=== PATIENT | male | born 1960 | race Caucasian/White ===

== ENCOUNTER 2019-05-01 17:15 | Inpatient (IN) | payer MEDICARE, OTHER ==
[~2019-05-01] VITALS: Ht 170.2 cm; Wt 53.8 kg
--- NOTE | 2019-05-01 17:45 | PHYS DOC ---
Past History Past Medical History: Schizophrenia, Other Additional Past Medical Histor: movement disorder of the hands (SYLVIE YOUNG DO) Past Surgical History: No Surgical History (SYLVIE YOUNG DO) Smoking: Non-smoker Alcohol Use: None Drug Use: Marijuana (SYLVIE YOUNG DO) Adult General Chief Complaint Chief Complaint: SKIN PROBLEM HPI HPI Patient is a 58-year-old male presents with left elbow region skin redness, pain, and swelling. 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 There has been increasing pain swelling and redness since that time. He has not placed anything on the wound, nor taken any medicines for pain. Increased pain with touch. No fever. No numbness or tingling in the fingers. Nothing makes the symptoms better. Discomfort is moderate in intensity.[] (SYLVIE YOUNG DO) Review of Systems Review of Systems Constitutional: Denies fever or chills [] Eyes: Denies change in visual acuity, redness, or eye pain [] HENT: Denies nasal congestion or sore throat [] Respiratory: Denies cough or shortness of breath [] Cardiovascular: No chest pain or palpitations[] GI: Denies abdominal pain, nausea, vomiting, bloody stools or diarrhea [] : Denies dysuria or hematuria [] Musculoskeletal: Denies back pain, see history of present illness[] Integument: See history of present illness[] Neurologic: Denies headache, focal weakness or sensory changes [] Endocrine: Denies polyuria or polydipsia [] All other systems were reviewed and found to be within normal limits, except as documented in this note. (SYLVIE YOUNG DO) Allergies Allergies Allergies Coded Allergies Type Severity Reaction Last Updated Verified No Known Drug Allergies 05/01/19 No (SYLVIE YOUNG DO) Physical Exam Physical Exam Constitutional: Well developed, well nourished, no acute distress, non-toxic appearance. [] HENT: Normocephalic, atraumatic, bilateral external ears normal, oropharynx moist, no oral exudates, nose normal. [] Eyes: PERRLA, EOMI, conjunctiva normal, no discharge. [] Neck: Normal range of motion, no tenderness, supple, no stridor. [] Cardiovascular:Heart rate regular rhythm, no murmur [] Lungs & Thorax: Bilateral breath sounds clear to auscultation [] Abdomen: Bowel sounds normal, soft, no tenderness, no masses, no pulsatile masses. [] Skin: Warm, dry, there is erythema and swelling on the antecubital region of his left elbow. Swelling over the insertion of the biceps. Decreased extension of the elbow. There is no axillary lymphadenopathy present. Full range of motion at the shoulder and the wrist.. [] Back: No tenderness, no CVA tenderness. [] Extremities: No tenderness, no cyanosis, no clubbing, ROM intact, no edema. [] Neurologic: Alert and oriented X 3, normal motor function, normal sensory function, no focal deficits noted. [] Psychologic: Affect normal, judgement normal, mood normal. [] (SYLVIE YOUNG DO) Current Patient Data Vital Signs Vital Signs Date Time Temp Pulse Resp B/P (MAP) Pulse Ox O2 Delivery O2 Flow Rate FiO2 05/01/19 17:28 98.2 68 16 94 Room Air (SYLVIE YOUNG DO) EKG EKG [] (SYLVIE YOUNG DO) Radiology/Procedures Radiology/Procedures [] (SYLVIE YOUNG DO) Radiology/[place] [address] IMAGING REPORT Signed PATIENT: BRENT KIMBROUGH CACCOUNT: [id number] : 1960 LOCATION: ER AGE: 58 SEX: M EXAM STATUS: REG ER ORD. PHYSICIAN: SYLVIE YOUNG DO REASON: Redness, swelling, bump along the medial aspect of the elbow PROCEDURE: ELBOW LEFT 3V 3 view left elbow HISTORY: Swelling AP lateral oblique views The visualized osseous structures appear normal. There is some air which projects posteriorly and medially to the elbow. There is no displacement of the fat pad. IMPRESSION: 1. No bony normality identified. 2. Possible air within the soft tissues which can be secondary to infection with a gas forming organism. Clinical correlation is suggested. Electronically signed by: Yarelis Ceja III, MD (05/01/2019 5:55 PM) [id number] DICTATED AND SIGNED BY: YARELIS CEJA III, MD DATE: 05/01/19 4298 CC: SYLVIE YOUNG DO; PCP,NO ~ [place] [address] IMAGING REPORT Signed PATIENT: BRENT KIMBROUGH CACCOUNT: [id number] : 1960 LOCATION: ER AGE: 58 SEX: M EXAM STATUS: REG ER ORD. PHYSICIAN: SYLVIE YOUNG DO REASON: redness and swelling medial aspect left elbow PROCEDURE: EXT NON VASC LEFT Exam: Ultrasound extremity, nonvascular left Indication: Redness, swelling medial aspect of the left elbow Technique: Real-time grayscale and color Doppler images of the left elbow were obtained by the department correctional program officer. Comparisons: Radiographs FINDINGS: In the left medial antecubital space at the area of concern there is a 2.9 x 2.4 x 1.8 cm echogenic area with dirty shadowing favored represent air. Edema is noted within the adjacent soft tissues. Extensive hyperemia is also noted surrounding this area. A nonpathologic appearing lymph node is also seen within the soft tissues. IMPRESSION: 2.9 x 2.4 x 1.8 cm echogenic area in the left medial antecubital fossa with associated soft tissue gas and adjacent reactive edema and hyperemia. Findings are nonspecific however the primary consideration is infection/abscess with air Electronically signed by: Brando Correia MD (05/01/2019 6:33 PM) [facility] DICTATED AND SIGNED BY: BRANDO CORREIA MD DATE: 05/01/19 1415 CC: SYLVIE YOUNG DO; HANNA BENSON MD; PCP,NO ~ (HANNA BENSON MD) Course & Med Decision Making Course & Med Decision Making Pertinent Labs and Imaging studies reviewed. (See chart for details) ED course: Patient arrived, was placed in bed, and tolerated exam well. IV access was established, laboratory samples were obtained. Patient care was endorsed to the nighttime physician at 1800 with laboratory and imaging findings pending.[] (SYLVIE YOUNG DO) Course & Med Decision Making Impression = 1. Cellulitis/Abscess 2. Lymphadenopathy 3. Possible abscess / gas pocket-Atypical Infection 4. Elevated CRP 110.9 5. Hx. schizophrenia 6. 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 No hx of immunosuppression. Patient is up-to-date with tetanus. Patient normally follows at [facility] Patient admitted to Dr. Grady for further evaluation and treatment. Procedure note- aspiration for culture- left elbow prepped with Betadine- aspirated a small amount of fluid from left elbow and gas. Sterile technique. 18-gauge needle. Sent for culture. (HANNA BENSON MD) Dragon Disclaimer Dragon Disclaimer This electronic medical record was generated, in whole or in part, using a voice recognition dictation system. (SYLVIE YOUNG DO) Departure Departure: Disposition: 01 HOME/RESIDENCE PRIOR TO ADM Condition: STABLE Referrals: PCP,NO (PCP) [employer] Disclaimer This chart was dictated in whole or in part using Voice Recognition software in a busy, high-work load, and often noisy Emergency Department environment. It may contain unintended and wholly unrecognized errors or omissions. (HANNA BENSON MD) SYLVIE YOUNG DO May 01, 2019 17:45 HANNA BENSON MD May 01, 2019 18:38
--- NOTE | 2019-05-01 17:58 | RAD ---
3 view left elbow HISTORY: Swelling AP lateral oblique views The visualized osseous structures appear normal. There is some air which projects posteriorly and medially to the elbow. There is no displacement of the fat pad. IMPRESSION: 1. No bony normality identified. 2. Possible air within the soft tissues which can be secondary to infection with a gas forming organism. Clinical correlation is suggested. Electronically signed by: Bassam Flower III, MD (05/01/2019 5:55 PM) [facility]
[2019-05-01 18:05] LABS: BASO # 0.1 x10^3/uL (0.0-0.2); BASO % 1 % (0-3); EOS % 0 % (0-3); HEMATOCRIT 39.7 % (39.0-53.0); HEMOGLOBIN 13.3 g/dL (13.0-17.5); LYMPH # 1.4 x10^3/uL (1.0-4.8); LYMPH % 14 % (24-48); MEAN CORPUSCULAR HEMOGLOBIN 32 pg (25-35); MEAN CORPUSCULAR HGB CONC 33 g/dL (31-37); MEAN CORPUSCULAR VOLUME 96 fL (79-100); MONO # 0.9 x10^3/uL (0.0-1.1); MONO % 9 % (0-9); NEUT # 7.6 x10^3uL (1.8-7.7); NEUT % 77 % (31-73); PLATELET COUNT 332 x10^3/uL (140-400); RED BLOOD COUNT 4.15 x10^6/uL (4.30-5.70); RED CELL DISTRIBUTION WIDTH 13.4 % (11.5-14.5)
[2019-05-01 18:10] LABS: ALBUMIN 3.1 g/dL (3.4-5.0); ALBUMIN/GLOBULIN RATIO 0.8 (1.0-1.7); C REACTIVE PROTEIN 110.9 mg/L (0-3.3); GFR 76.5; POTASSIUM 3.6 mmol/L (3.5-5.1); TOTAL BILIRUBIN 1.4 mg/dL (0.2-1.0)
[2019-05-01] MEDS ORDERED: SMZ/TMP 800/160MG TABLET. PO ONE (18:30)
[2019-05-01] MEDS ORDERED: IV NORMAL SALINE 50ML 50 ML ONE (18:35)
[2019-05-01] MEDS ORDERED: cefTRIAXone SODIUM 1 GM VIAL ONE (18:35)
--- NOTE | 2019-05-01 18:36 | RAD ---
Exam: Ultrasound extremity, nonvascular left Indication: Redness, swelling medial aspect of the left elbow Technique: Real-time grayscale and color Doppler images of the left elbow were obtained by the department safe deposit box rental clerk. Comparisons: Radiographs FINDINGS: In the left medial antecubital space at the area of concern there is a 2.9 x 2.4 x 1.8 cm echogenic area with dirty shadowing favored represent air. Edema is noted within the adjacent soft tissues. Extensive hyperemia is also noted surrounding this area. A nonpathologic appearing lymph node is also seen within the soft tissues. IMPRESSION: 2.9 x 2.4 x 1.8 cm echogenic area in the left medial antecubital fossa with associated soft tissue gas and adjacent reactive edema and hyperemia. Findings are nonspecific however the primary consideration is infection/abscess with air Electronically signed by: Brando Johnson MD (05/01/2019 6:33 PM) [facility]
[2019-05-01 19:09] LABS: SEDIMENTATION RATE 45 (0-15)
[2019-05-01] MEDS ORDERED: ONDANSETRON PF 4 MG/2 ML VIAL. IV PRN (19:15)
[2019-05-01] MEDS ORDERED: ACETAMINOPHEN 325 MG TABLET PO PRN (19:15)
[2019-05-01 21:22] VITALS: BP 123/78
[2019-05-01] MEDS: IV RINGERS SOLUTION,LACTATED 1,000 ML IV SCH (22:24)
[2019-05-02] MEDS: IV RINGERS SOLUTION,LACTATED 1,000 ML IV SCH ×4 (04:37→20:01)
[2019-05-02 05:49] LABS: BASO # 0.1 x10^3/uL (0.0-0.2); BASO % 1 % (0-3); EOS # 0.1 x10^3/uL (0.0-0.7); EOS % 2 % (0-3); HEMATOCRIT 36.8 % (39.0-53.0); HEMOGLOBIN 12.6 g/dL (13.0-17.5); LYMPH # 1.4 x10^3/uL (1.0-4.8); LYMPH % 19 % (24-48); MEAN CORPUSCULAR HEMOGLOBIN 32 pg (25-35); MEAN CORPUSCULAR HGB CONC 34 g/dL (31-37); MEAN CORPUSCULAR VOLUME 94 fL (79-100); MONO # 0.6 x10^3/uL (0.0-1.1); MONO % 8 % (0-9); NEUT # 5.1 x10^3uL (1.8-7.7); NEUT % 71 % (31-73); PLATELET COUNT 283 x10^3/uL (140-400); RED CELL DISTRIBUTION WIDTH 13.4 % (11.5-14.5); WHITE BLOOD COUNT 7.2 x10^3/uL (4.0-11.0)
[2019-05-02 05:59] LABS: CALCIUM 8.5 mg/dL (8.5-10.1); CREATININE 0.9 mg/dL (0.7-1.3); GFR 86.4; POTASSIUM 3.5 mmol/L (3.5-5.1)
[2019-05-02 06:13] VITALS: BP 126/81
[2019-05-02] MEDS: LACTOBACILLUS RHAMNOSUS GG 1 CAPSULE. PO SCH ×2 (09:00→20:00)
[2019-05-02 11:18] VITALS: BP 121/72
[2019-05-02] MEDS ORDERED: PIP/TAZO PER PHARMACY MC PRN (13:00)
[2019-05-02] MEDS: PIPERACILLIN/TAZOBACTAM 3.375 GM in IV NORMAL SALINE 50ML 50 ML IV SCH ×3 (14:05→23:29)
[2019-05-02] MEDS: VANCOMYCIN PER PHARMACY MC PRN (14:55)
[2019-05-02] MEDS ORDERED: VANCOMYCIN 1.5 GM in IV NORMAL SALINE 500ML 500 ML IV ONE ×4 (15:00)
[2019-05-02] MEDS: VANCOMYCIN 1 GM in IV NORMAL SALINE 250ML 250 ML IV SCH (15:27)
[2019-05-02 15:30] VITALS: BP 112/73
[2019-05-02 19:33] VITALS: BP 128/82
--- NOTE | 2019-05-02 21:04 | HP ---
ADMIT DATE: 05/01/2019 HISTORY OF PRESENT ILLNESS: A 58-year-old male came in with marked swelling to his left elbow area. 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 He got poked with something while working on a pine tree couple of days prior to admission and the patient had increased pain, swelling and redness to that area. There was a large, approximately 5 cm x 4 cm raised area on the ventral surface of the antecubital area as well as swelling and redness around the left elbow joint itself. As a result of this, the patient had failed outpatient therapy and was continued on IV antibiotic therapy. He did have an elevated sedimentation rate. PAST MEDICAL HISTORY: Positive for psychiatric problems, schizophrenia. ALLERGIES: No known drug allergies. MEDICATIONS: The patient is basically on medications here at the hospital including piperacillin and vancomycin. SOCIAL HISTORY: The patient has about 40-50 pack year history of smoking. Occasional alcohol use and the patient also is a full code. FAMILY HISTORY: Unremarkable. REVIEW OF SYSTEMS: The patient notes some chilling, but other than that denies chest pain, shortness of breath, abdominal pain. Denies any melena, hematochezia, hematemesis or diaphoresis. PHYSICAL EXAMINATION: GENERAL: This is a pleasant white male. VITAL SIGNS: Blood pressure 128/82, respiratory rate 20, pulse 84, afebrile. HEENT: The patient's head was atraumatic, normocephalic. Eyes: PERRLA without jaundice. Mouth and throat: Normal. NECK: Supple. LUNGS: Diminished, but basically clear. CARDIOVASCULAR: Stable. Left elbow swollen, tender, especially in the antecubital area that is swollen mass. EXTREMITIES: No clubbing, cyanosis, nor edema. NEUROLOGIC: The patient was alert and oriented, baseline for him. LABORATORY DATA: White count was 10. Sed rate was 45. The patient continues to be monitored carefully. C-reactive protein approximately 111. The patient will continue to be monitored carefully and make further evaluation on him as indicated. IMPRESSION: Cellulitis, possible abscess to the left elbow area. PLAN: Continue on IV antibiotic therapy and make further evaluation on him as indicated. TANISHA BRITO MD DR: DEONTE/miguel JOB#: [id number] / [id number]
[2019-05-03] MEDS: PIPERACILLIN/TAZOBACTAM 3.375 GM in IV NORMAL SALINE 50ML 50 ML IV SCH ×3 (05:44→17:27)
[2019-05-03] MEDS: IV RINGERS SOLUTION,LACTATED 1,000 ML IV SCH ×3 (05:44→14:44)
[2019-05-03 06:02] VITALS: BP 115/74
[2019-05-03] MEDS: LACTOBACILLUS RHAMNOSUS GG 1 CAPSULE. PO SCH ×2 (08:00→22:17)
[2019-05-03] MEDS ORDERED: BENZTROPINE MESYLATE 1 MG TABLET PO PRN (11:15)
[2019-05-03] MEDS ORDERED: TAMS0.4C97 PO (11:25)
[2019-05-03] MEDS ORDERED: RISP3TAB3 PO (11:25)
[2019-05-03] MEDS ORDERED: CLON0.1T PO (11:25)
[2019-05-03] MEDS ORDERED: HYDR25TA PO ×2 (11:25→11:27)
[2019-05-03] MEDS ORDERED: TRAZ-120 PO (11:25)
[2019-05-03] MEDS ORDERED: BENZ1TAB5 PO (11:25)
[2019-05-03 11:27] VITALS: BP 100/79
[2019-05-03] MEDS: VANCOMYCIN 1 GM in IV NORMAL SALINE 250ML 250 ML IV SCH (14:46)
[2019-05-03] MEDS ORDERED: hydrOXYzine HCL 25 MG TABLET PO PRN (15:00)
[2019-05-03 16:12] VITALS: BP 119/62
[2019-05-03 19:12] VITALS: BP 103/67
[2019-05-03] MEDS: traZODone 50 MG TABLET. PO PRN (22:17)
[2019-05-03] MEDS: risperiDONE 0.5 MG TABLET. PO SCH (22:17)
[2019-05-03] MEDS: TAMSULOSIN 0.4 MG CAP.ER.24H. PO SCH (22:18)
[2019-05-03] MEDS: cloNIDine HCL 0.1 MG TABLET PO SCH (22:18)
[2019-05-03 23:33] VITALS: BP 127/75
[2019-05-04 03:30] LABS: VANC TR 7.2 mcg/mL (10.0-20.0)
[2019-05-04] MEDS: VANCOMYCIN 1 GM in IV NORMAL SALINE 250ML 250 ML IV SCH ×3 (03:30→18:15)
[2019-05-04] MEDS: IV RINGERS SOLUTION,LACTATED 1,000 ML IV SCH ×5 (03:30→22:12)
--- NOTE | 2019-05-04 04:55 | PN ---
DATE: SUBJECTIVE: This is a 58-year-old male from the [place]. The patient has severe infection in his left antecubital, left elbow area. The patient has made good progress with IV antibiotic therapy. PICC line was placed. [facility] this gentleman, as he has made excellent progress. PHYSICAL EXAMINATION: VITAL SIGNS: Blood pressure 103/67, respiratory rate 18, pulse 86, afebrile. GENERAL: The patient is alert and oriented. The patient's swelling to the left elbow area has diminished somewhat. He is markedly improved. PLAN: We will continue to monitor the patient, accordingly make further evaluation. Continue on IV antibiotic therapy. IMPRESSION: Cellulitis, abscess to the left antecubital area, anemia of chronic disease, history of schizophrenia. C-reactive protein 111. TANISHA BRITO MD DR: DEONTE/miguel JOB#: [id number] / [id number]
[2019-05-04] MEDS: PIPERACILLIN/TAZOBACTAM 3.375 GM in IV NORMAL SALINE 50ML 50 ML IV SCH ×5 (05:56→17:36)
[2019-05-04 06:48] VITALS: BP 108/70
[2019-05-04] MEDS: LACTOBACILLUS RHAMNOSUS GG 1 CAPSULE. PO SCH ×2 (09:08→20:54)
[2019-05-04] MEDS: cloNIDine HCL 0.1 MG TABLET PO SCH ×2 (09:08→20:54)
[2019-05-04] MEDS ORDERED: VANCOMYCIN 1 GM in IV NORMAL SALINE 250ML 250 ML IV SCH (10:15)
[2019-05-04] MEDS: VANCOMYCIN PER PHARMACY MC PRN (10:21)
[2019-05-04 11:09] VITALS: BP 109/65
[2019-05-04 15:00] VITALS: BP 106/62
[2019-05-04 19:12] VITALS: BP 110/68
[2019-05-04] MEDS: traZODone 50 MG TABLET. PO PRN (20:54)
[2019-05-04] MEDS: TAMSULOSIN 0.4 MG CAP.ER.24H. PO SCH (20:54)
[2019-05-04] MEDS: risperiDONE 0.5 MG TABLET. PO SCH (20:54)
[2019-05-05] MEDS: PIPERACILLIN/TAZOBACTAM 3.375 GM in IV NORMAL SALINE 50ML 50 ML IV SCH ×5 (00:08→23:03)
--- NOTE | 2019-05-05 01:46 | PN ---
DATE: SUBJECTIVE: A 58-year-old gentleman with cellulitis to the left elbow area. We are awaiting word from [place] to organize an outpatient therapy for this gentleman, although the swelling seems to be going down. He has had a PICC line placed and antibiotic therapy seems to be helping him quite a bit. OBJECTIVE: VITAL SIGNS: Blood pressure 110/60, respiratory rate 16, pulse 100, afebrile. GENERAL: The patient is alert and oriented. LUNGS: Clear. CARDIOVASCULAR: Stable. EXTREMITIES: The patient does have some swelling to the left antecubital area; however, seems to be markedly improved and swelling has markedly diminished. He is doing much better. NEUROLOGIC: Baseline for this individual. PLAN: We will go ahead and continue with IV antibiotic therapy and try to get him as an outpatient therapy. IMPRESSION: Cellulitis to the left elbow, abscess to the left elbow. TANISHA BRITO MD DR: DEONTE/miguel JOB#: [id number] / [id number]
[2019-05-05 02:50] LABS: VANC TR 16.9 mcg/mL (10.0-20.0)
[2019-05-05] MEDS: VANCOMYCIN 1 GM in IV NORMAL SALINE 250ML 250 ML IV SCH ×3 (03:25→18:14)
[2019-05-05] MEDS: IV RINGERS SOLUTION,LACTATED 1,000 ML IV SCH (04:30)
[2019-05-05 05:05] VITALS: BP 112/66
[2019-05-05] MEDS: LACTOBACILLUS RHAMNOSUS GG 1 CAPSULE. PO SCH ×2 (07:39→20:16)
[2019-05-05] MEDS: cloNIDine HCL 0.1 MG TABLET PO SCH ×2 (07:40→20:16)
[2019-05-05 10:55] VITALS: BP 120/67
[2019-05-05 14:43] VITALS: BP 129/87
[2019-05-05 18:27] VITALS: BP 113/74
[2019-05-05] MEDS: TAMSULOSIN 0.4 MG CAP.ER.24H. PO SCH (20:16)
[2019-05-05] MEDS: risperiDONE 0.5 MG TABLET. PO SCH (20:16)
[2019-05-05] MEDS: traZODone 50 MG TABLET. PO PRN (20:16)
--- NOTE | 2019-05-06 02:16 | PN ---
DATE: 05/05/2019 SUBJECTIVE: A 58-year-old male in with abscess, cellulitis to his left antecubital area. The patient has made a remarkable improvement. There is marked improvement to his left antecubital area with the swelling down to approximately just a couple of centimeters. There is a hard nodule there. The patient is supposed to go to the [place] for further treatment as an outpatient if needed and they have been called back as being Monday, over the weekend, he had come back Monday. OBJECTIVE: VITAL SIGNS: Blood pressure 120/67, respiratory rate 20, pulse 88, afebrile. GENERAL: The patient is alert and oriented. LUNGS: Diminished, but basically clear. CARDIOVASCULAR: Regular sinus rhythm. EXTREMITIES: The patient's left elbow markedly improved with the swelling and redness markedly diminished with his use of the IV antibiotic therapy. Otherwise, the rest of his exam is basically unremarkable. 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 We will continue on IV antibiotic therapy for now and make further evaluation once we hear back from the [facility] about [facility]. TANISHA BRITO MD DR: DEONTE/miguel JOB#: [id number] / [id number]
[2019-05-06] MEDS: VANCOMYCIN 1 GM in IV NORMAL SALINE 250ML 250 ML IV SCH (02:54)
[2019-05-06] MEDS: PIPERACILLIN/TAZOBACTAM 3.375 GM in IV NORMAL SALINE 50ML 50 ML IV SCH (05:20)
[2019-05-06 06:36] VITALS: BP 101/60
[2019-05-06] MEDS: LACTOBACILLUS RHAMNOSUS GG 1 CAPSULE. PO SCH (08:13)
[2019-05-06 08:15] VITALS: BP 103/68
[2019-05-06] MEDS: cloNIDine HCL 0.1 MG TABLET PO SCH (08:15)
[2019-05-06] MEDS ORDERED: PIPE3.377 IV (10:14)
[2019-05-06] MEDS ORDERED: LACT1CAP19 PO (10:14)
[2019-05-06] MEDS ORDERED: VANC1PIG IV (10:14)
== END 2019-05-06 11:08 | disposition home or self-care (01) | DRG 603 ==
LOC: ER 17:15 → 1 SOUTH 19:00
PROVIDERS: ADMIT Family Medicine; ATTEND Family Medicine
PROC: 02HV33Z Insertion of Infusion Device into Superior Vena Cava, Percutaneous Approach (ICD-10-PCS; principal; 2019-05-02)
PROC: B548ZZA Ultrasonography of Superior Vena Cava, Guidance (ICD-10-PCS; 2019-05-02)
DX: L03.114 Cellulitis of left upper limb (principal); S51.032A Puncture wound without foreign body of left elbow, initial encounter; R59.1 Generalized enlarged lymph nodes; L02.414 Cutaneous abscess of left upper limb; F20.9 Schizophrenia, unspecified; D63.8 Anemia in other chronic diseases classified elsewhere; Z87.891 Personal history of nicotine dependence; Z79.899 Other long term (current) drug therapy; X58.XXXA Exposure to other specified factors, initial encounter; Y93.89 Activity, other specified; Y92.89 Other specified places as the place of occurrence of the external cause; Y99.8 Other external cause status
CPT/HCPCS: 20605; 36415; 73080; 76881; 80048; 80053; 80202; 85025; 85651; 86140; 87040; 87070; 96365; 96366; J0696; J2543; J3370; J3490; J7040; J7050; J7120; 99285-25

== ENCOUNTER 2020-01-29 13:19 | Emergency (ER) | payer MEDICARE, OTHER ==
[~2020-01-29] VITALS: Ht 170.2 cm; Wt 59.9 kg
[~2020-01-29 13:19] MED LIST: BENZ1TAB5 PO; CLON0.1T PO; HYDR25TA PO; LACT1CAP19 PO; PIPE3.377 IV; RISP3TAB3 PO; TAMS0.4C97 PO; TRAZ-120 PO; VANC1PIG IV
[2020-01-29] MEDS ORDERED: MUPI22OI2 TP (13:48)
[2020-01-29] MEDS ORDERED: DOXY100C2 PO (13:48)
--- NOTE | 2020-01-29 13:49 | PHYS DOC ---
Past History Past Medical History: Schizophrenia, Other Additional Past Medical Histor: movement disorder of the hands Past Surgical History: No Surgical History Smoking: Non-smoker Alcohol Use: None Drug Use: Marijuana Social History Narrative: past Hx General Adult EDM: Chief Complaint: INSECT BITE HPI: HPI: Patient is a 59-year-old male who presents to the emergency department for evaluation. He states that about 2 weeks ago friends of his noticed some bumps on his arms, he has about a quarter dollar sized mature, somewhat firm but not fluctuant abscess on his left medial forearm. He is not having any pain in this area. There is also a soft tissue nodule, nontender, and the medial aspect of his right elbow. He denies any fevers, chills, numbness, or weakness. There are no alleviating or exacerbating factors to his symptoms. Review of Systems: Review of Systems: Constitutional: Denies fever or chills Musculoskeletal: Denies back pain or joint pain Integument: Denies rash, other than as noted in the HPI Neurologic: Denies headache, focal weakness or sensory changes Heart Score: Risk Factors: Risk Factors: DM, Current or recent (<one month) smoker, HTN, HLP, family history of CAD, obesity. Risk Scores: Score 0 - 3: 2.5% MACE over next 6 weeks - Discharge Home Score 4 - 6: 20.3% MACE over next 6 weeks - Admit for Clinical Observation Score 7 - 10: 72.7% MACE over next 6 weeks - Early Invasive Strategies Allergies: Allergies: Allergies Coded Allergies Type Severity Reaction Last Updated Verified I S O L A T I O N *CONTACT* Allergy Unknown 01/29/20 Yes NKMA Allergy Unknown 01/29/20 Yes Physical Exam: PE: PHYSICAL EXAM: HEENT: Atruamatic NECK: Supple, normal ROM, non-tender. CARDIAC: Regular Rate and Rhythm LUNGS: Clear Bilaterally EXTREMITIES: There are track morales and a surgical scar noted in the right antecubital fossa. On the medial aspect of the right elbow, there is a nontender soft tissue nodule measuring about 2 cm, without any associated skin changes. The etiology of this is unknown. On the medial left proximal forearm, there is an approximately 3 cm area of erythema with some thinning of the skin in the center, without any surrounding erythema, warmth, or tenderness. The area is somewhat firm but not fluctuant. There are no other significant lesions noted. There are several old scars on both upper extremities. EKG: EKG: [] Radiology/Procedures: Radiology/Procedures: [] Course & Med Decision Making: Course & Med Decision Making The patient's lesions are asymptomatic. He presented primarily because his friends noticed the lesions and wanted him to get them checked out. I do not think an I&D would be of benefit to the patient's left forearm, given the fact that the lesion is somewhat firm, and may represent a maturing/healing abscess. I will prescribe topical and oral antibiotics. I discussed importance of close surgical follow-up and return precautions. I am uncertain of the etiology of the right upper extremity lesion. Dragon Disclaimer: Dragon Disclaimer: This electronic medical record was generated, in whole or in part, using a voice recognition dictation system. Departure Departure: Impression: Primary Impression: Abscess Additional Impression: Skin nodule Disposition: HOME/RESIDENCE PRIOR TO ADM Condition: STABLE Patient Instructions: Abscess Additional Instructions: The lesion on your left forearm appears to be an infection. The exact etiology of the right forearm lesion is unknown, although this might represent a small infection as well. Use the prescribed antibiotics, both orally and topically as recommended. It is important that you get close outpatient follow-up for further evaluation and treatment. Please call the surgery clinic at [facility], , to schedule a follow-up appointment. Scripts Mupirocin (MUPIROCIN) 22 Gm Oint...g. 1 ERIC TP TID for - for 7 Days, #22 GM Prov: SUMMER HAMMOND MD 01/29/20 Doxycycline Hyclate (DOXYCYCLINE HYCLATE) 100 Mg Capsule 1 CAP PO BID for -, #20 CAP Prov: SUMMER HAMMOND MD 01/29/20 Justification of Admission: Justification of Admission: Justification of Admission Dx: N/A SUMMER HAMMOND MD Jan 29, 2020 13:49
[2020-01-29 13:57] VITALS: BP 135/84
== END 2020-01-29 13:55 | disposition home or self-care (01) ==
LOC: ER 13:19
DX: L02.414 Cutaneous abscess of left upper limb (principal); R22.31 Localized swelling, mass and lump, right upper limb; F20.9 Schizophrenia, unspecified; Z91.041 Radiographic dye allergy status
CPT/HCPCS: 99283

== ENCOUNTER 2021-02-23 08:39 | Emergency (ER) | payer SELFPAY ==
[~2021-02-23] VITALS: Ht 170.2 cm; Wt 59.9 kg
[~2021-02-23 08:39] MED LIST changes: +DOXY100C2 PO; +MUPI22OI2 TP; -RISP3TAB3 PO; +RISP3TAB56 PO
[2021-02-23] MEDS ORDERED: KETOROLAC 15 MG/ML VIAL. IM ONE (09:00)
[2021-02-23] MEDS ORDERED: ONDANSETRON ODT 4 MG TAB.RAPDIS PO ONE (09:15)
[2021-02-23] MEDS ORDERED: IBUPROFEN 600 MG TABLET. PO ONE (09:15)
--- NOTE | 2021-02-23 09:30 | PHYS DOC ---
Past History Past Medical History: Schizophrenia, Other Additional Past Medical Histor: movement disorder of the hands Past Surgical History: Appendectomy Smoking: Non-smoker Alcohol Use: None Drug Use: Marijuana General Adult EDM: Chief Complaint: FATIGUE Problems: (1) Fatigue HPI: HPI: Patient is a 60-year-old year old male who presents with fatigue for the past 3 days along with loss of sense of taste and smell. He reports that he recently tested positive for coronavirus. He has been fully vaccinated. He also complains of subjective fever, has not measured his temperature. He also endorses a lack of appetite, nausea, vomiting x3 for the last 24 hours. He reports his vomit has been nonbloody and nonbilious. He has not taken anything at home for his symptoms. The patient denies chest pain, shortness of breath, abdominal pain, urinary symptoms, cough, recent trauma, congestion, sore throat, vision change or any other complaints. Review of Systems: Review of Systems: Constitutional: Admits to fatigue, subjective fever and chills Eyes: Denies change in vision HENT: Denies congestion or sore throat Respiratory: Denies cough or shortness of breath Cardiovascular: Denies chest pain or edema GI: Denies abdominal pain, admits to nausea, vomiting, chronic diarrhea : Denies change in urination Musculoskeletal: Denies extremity pain, or trauma Skin: Denies rash Neurologic: Denies headache, focal weakness Psychiatric: Denies homicidal ideations, suicidal ideations, hallucinations, depression. All other systems reviewed as negative except for what was mentioned in the HPI. Family History: Family History: Noncontributory Current Medications: Current Meds: My Orders - POLY COX DO Procedure Category Date Status Time Zofran 4 mg ODT Chest Ap Only RAD 02/23/21 Taken 09:00 Ibuprofen (Motrin) PHA 02/23/21 Complete 09:15 Allergies: Allergies: Allergies Coded Allergies Type Severity Reaction Last Updated Verified I S O L A T I O N *CONTACT* Allergy Unknown 01/29/20 Yes NKMA Allergy Unknown 02/23/21 Yes Physical Exam: PE: Constitutional: No acute distress, non-toxic appearance. HENT: Atraumatic, bilateral external ears normal, nose normal. Eyes: PERRLA, EOMI, conjunctiva normal, no discharge. Neck: Normal range of motion, no tenderness, supple, no stridor. Cardiovascular: Heart rate regular rhythm. 2+ radial pulses Lungs & Thorax: No respiratory distress, symmetrical expansion. Bilateral breath sounds clear to auscultation Abdomen: Soft, no tenderness Skin: Warm, dry. Extremities: No tenderness, no cyanosis, ROM intact, no edema. Neurologic: Alert and oriented X 3, normal motor function, normal sensory function, no focal deficits noted. Non ataxic gait. GCS 15 Psychologic: Affect normal, judgment normal, mood normal. Current Patient Data: Vital Signs: Vital Signs Date Time Temp Pulse Resp B/P (MAP) Pulse Ox O2 Delivery O2 Flow Rate FiO2 02/23/21 08:44 97.8 78 20 135/84 93 Radiology/Procedures: Radiology/Procedures: XR CHEST 1V History: Reason: covid + with weakness / Spl. Instructions: / History: Comparison: None. Findings: Subtle ill-defined bibasilar opacities. No pleural effusion. No pneumothorax. Normal heart size. Impression: 1. Subtle ill-defined bibasilar opacities, may relate to atelectasis or developing infiltrates including viral pneumonia. Heart Score: C/O Chest Pain: N/A Course & Med Decision Making: Course & Med Decision Making Patient with relatively negative x-ray, significant for viral pneumonia, managing his symptoms for COVID-19 at this time. His presentation is consistent with an active COVID-19 infection given that he recently tested positive. He appears well clinically have stable vital signs and is complaining of upper respiratory symptoms with some nausea. Patient passed p.o. challenge prior to leaving the emergency department. Departure Departure: Impression: Primary Impression: COVID-19 Disposition: 01 HOME / SELF CARE / HOMELESS Condition: STABLE Referrals: PCP,NO (PCP) Patient Instructions: Upper Respiratory Infection, Adult Additional Instructions: You were seen in the emergency department for a upper respiratory tract infection, most likely from COVID-19. You should return to the ED if you develop worsening cough, shortness of breath, chest pain, or any other new or concerning symptoms. You can use an OTC sinus rinse to help with sinus congestion. Your cough may persist for a few weeks but your other symptoms should gradually improve. You should make sure to drink plenty of fluids at home. You may use Tylenol at home for fevers every 4-6 hours no more than 4000 mg/day. Please remember it is very important that you self isolate/quarantine at home, stay away from family and friends, and stay away from work until you are cleared by your physician or you test negative and are asymptomatic. POLY COX DO Feb 23, 2021 09:30
--- NOTE | 2021-02-23 10:04 | RAD ---
XR CHEST 1V History: Reason: covid + with weakness / Spl. Instructions: / History: Comparison: None. Findings: Subtle ill-defined bibasilar opacities. No pleural effusion. No pneumothorax. Normal heart size. Impression: 1. Subtle ill-defined bibasilar opacities, may relate to atelectasis or developing infiltrates inclu ding viral pneumonia. Electronically signed by: Brad Maravilla DO (02/23/2021 10:01 AM) [id number]
== END 2021-02-23 12:50 | disposition home or self-care (01) ==
LOC: ER 08:39
DX: U07.1 COVID-19 (principal); R11.2 Nausea with vomiting, unspecified; F20.9 Schizophrenia, unspecified; Z90.89 Acquired absence of other organs; Z88.8 Allergy status to other drugs, medicaments and biological substances
CPT/HCPCS: 71045; 99283

== ENCOUNTER 2021-11-29 15:02 | Emergency (ER) | payer SELFPAY ==
[~2021-11-29] VITALS: Ht 170.2 cm; Wt 58.6 kg
[~2021-11-29 15:02] MED LIST changes: -DOXY100C2 PO; +DOXY100C3 PO
[2021-11-29] MEDS ORDERED: IV NORMAL SALINE 1,000ML 1,000 ML IV ONE ×2 (15:45→17:45)
--- NOTE | 2021-11-29 15:53 | PHYS DOC ---
Past History Past Medical History: Schizophrenia, Other Additional Past Medical Histor: movement disorder of the hands Past Surgical History: Appendectomy, Other Additional Past Surgical Histo: DENTAL Smoking: Non-smoker Alcohol Use: None Drug Use: Marijuana General Adult EDM: Chief Complaint: MULTIPLE COMPLAINTS HPI: HPI: 61-year-old male presents with concern for loss of memory. The patient went to work last week and then went home when he is finished. He got up on Monday and thought that it was still Monday. He cannot remember what he did on Monday or Monday. He also told the nurse that marianela hooked up to his truck and he does not remember doing that. The patient never had something like this happen before. He denies drugs or alcohol. He does not believe he hit his head. 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 No other changes in his life. He is unable to provide any other history at this time. Review of Systems: Review of Systems: Constitutional: Denies fever or chills Eyes: Denies change in visual acuity HENT: Denies nasal congestion or sore throat Respiratory: Denies cough or shortness of breath Cardiovascular: Denies chest pain or edema GI: Denies abdominal pain, nausea, vomiting, bloody stools or diarrhea : Denies dysuria Musculoskeletal: Denies back pain or joint pain Integument: Denies rash Neurologic: Memory loss. Denies headache, focal weakness or sensory changes Endocrine: Denies polyuria or polydipsia Lymphatic: Denies swollen glands Psychiatric: Denies depression or anxiety Current Medications: Current Meds: Current Medications Medications (Trade) Dose Ordered Sig/Megha Start Time Stop Time Status Last Admin Dose Admin Sodium Chloride 1,000 ml @ 1,000 mls/hr 1X ONCE 11/29/21 15:45 11/29/21 16:44 Allergies: Allergies: Allergies Coded Allergies Type Severity Reaction Last Updated Verified I S O L A T I O N *CONTACT* Allergy Unknown 11/29/21 Yes No Known Medication Allergies Allergy Unknown 11/29/21 Yes Physical Exam: PE: Constitutional: Well developed, well nourished, no acute distress, non-toxic appearance. [] HENT: Normocephalic, atraumatic, bilateral external ears normal, oropharynx moist, no oral exudates, nose normal. [] Eyes: PERRLA, EOMI, conjunctiva normal, no discharge. [] Neck: Normal range of motion, no tenderness, supple, no stridor. [] Cardiovascular: Heart rate regular rhythm, no murmur [] Lungs & Thorax: Bilateral breath sounds clear to auscultation [] Abdomen: Bowel sounds normal, soft, no tenderness, no masses, no pulsatile masses. [] Skin: Warm, dry, no erythema, no rash. [] Back: No tenderness, no CVA tenderness. [] Extremities: No tenderness, no cyanosis, no clubbing, ROM intact, no edema. [] Neurologic: Alert and oriented X 3, constant rhythmic hand movements worse on left, normal sensory function, no focal deficits noted. [] Psychologic: Affect normal, judgement normal, mood normal. [] Current Patient Data: Vital Signs: Vital Signs Date Time Temp Pulse Resp B/P (MAP) Pulse Ox O2 Delivery O2 Flow Rate FiO2 11/29/21 15:17 97.8 89 17 129/75 (93) 99 Room Air EKG: EKG: [] Radiology/Procedures: Radiology/Procedures: [] Heart Score: C/O Chest Pain: N/A Risk Factors: Risk Factors: DM, Current or recent (<one month) smoker, HTN, HLP, family history of CAD, obesity. Risk Scores: Score 0 - 3: 2.5% MACE over next 6 weeks - Discharge Home Score 4 - 6: 20.3% MACE over next 6 weeks - Admit for Clinical Observation Score 7 - 10: 72.7% MACE over next 6 weeks - Early Invasive Strategies Course & Med Decision Making: Course & Med Decision Making Pertinent Labs and Imaging studies reviewed. (See chart for details) The patient's labs are unremarkable. His urinalysis is pending. His head CT is negative for acute findings. I discussed the results with the patient and he is reassured. He feels like he is safe to be discharged home. I believe this is reasonable and I do not expect anything in his urinalysis to change his disposition. He is stable for discharge at this time. [] Dragon Disclaimer: Dragon Disclaimer: This electronic medical record was generated, in whole or in part, using a voice recognition dictation system. Departure Departure: Impression: Primary Impression: Memory loss of unknown cause Disposition: HOME / SELF CARE / HOMELESS Condition: STABLE Referrals: PCP,NO (PCP) Patient Instructions: Transient Global Amnesia NEFTALI CHOPRA DO November 29, 2021 15:53
--- NOTE | 2021-11-29 15:57 | RAD ---
CT head without contrast dated 11/29/2021 3:53 PM Comparison: None CLINICAL INDICATION: Memory loss TECHNIQUE: Contiguous axial imaging of the head was performed from skull base to vertex. One or more of the following individualized dose reduction techniques were utilized for this examinat ion: 1. Automated exposure control 2. Adjustment of the mA and/or kV according to patient size 3. Use of iterative reconstruction technique. FINDINGS: Ventricles and sulci are mildly prominent for age. No midline shift or mass effect. Minimal spotty lo w density in the deep/subcortical periventricular white matter. No hemorrhage or extra-axial collecti on. Posterior fossa and brainstem unremarkable. Visualized paranasal sinuses and mastoid air cells are clear. No apparent calvarial abnormality. IMPRESSION: 1. No evidence of acute intracranial hemorrhage or mass. 2. Mild chronic small vessel ischemic changes and atrophy. Electronically signed by: Levy Maldonado MD (11/29/2021 3:54 PM) TIMOTHY
[2021-11-29 16:32] LABS: CALCIUM 8.4 mg/dL (8.5-10.1); GFR 75.7; POTASSIUM 4.3 mmol/L (3.5-5.1)
[2021-11-29 16:38] LABS: ALBUMIN 3.1 g/dL (3.4-5.0); ALBUMIN/GLOBULIN RATIO 1.1 (1.0-1.7); TOTAL BILIRUBIN 1.4 mg/dL (0.2-1.0); TOTAL PROTEIN 5.9 g/dL (6.4-8.2)
[2021-11-29 16:39] LABS: WHITE BLOOD COUNT 6.2 x10^3/uL (4.0-11.0)
[2021-11-29 16:40] LABS: BASO % 1 % (0-3); EOS # 0.1 x10^3/uL (0.0-0.7); EOS % 1 % (0-3); HEMOGLOBIN 13.6 g/dL (13.0-17.5); LYMPH # 1.4 x10^3/uL (1.0-4.8); LYMPH % 22 % (24-48); MEAN CORPUSCULAR HEMOGLOBIN 33 pg (25-35); MEAN CORPUSCULAR HGB CONC 34 g/dL (31-37); MEAN CORPUSCULAR VOLUME 95 fL (79-100); MONO # 0.5 x10^3/uL (0.0-1.1); MONO % 8 % (0-9); NEUT # 4.2 x10^3uL (1.8-7.7); NEUT % 68 % (31-73); PLATELET COUNT 182 x10^3/uL (140-400); RED BLOOD COUNT 4.19 x10^6/uL (4.30-5.70); RED CELL DISTRIBUTION WIDTH 13.1 % (11.5-14.5)
[2021-11-29 18:10] VITALS: BP 135/79
[2021-11-29 18:33] LABS: BARBITURATES NEG (NEG); BENZODIAZEPINES NEG (NEG); CANNABINOIDS NEG (NEG); COCAINE NEG (NEG); METHADONE NEG (NEG); OPIATES NEG (NEG); PHENCYCLIDINE NEG (NEG)
[2021-11-29 18:35] LABS: AMPHETAMINE/METHAMPHETAMINE POS (NEG)
[2021-11-29 19:01] LABS: BACTERIA,URINE 0 /HPF (0-FEW); CLARITY,URINE CLEAR; COLOR,URINE YELLOW; GLUCOSE,URINE NEG (NEG); NITRITE,URINE NEG (NEG); RBC,URINE OCC /HPF (0-2); UROBILINOGEN,URINE 0.2 mg/dL (0.2 mg/dL)
== END 2021-11-29 18:21 | disposition home or self-care (01) ==
LOC: ER 15:11
DX: R41.3 Other amnesia (principal); F20.9 Schizophrenia, unspecified; Z88.8 Allergy status to other drugs, medicaments and biological substances
CPT/HCPCS: 36415; 70450; 80053; 80307; 81001; 85025; 87086; 96360; 96361; 99285; J7030